=== PATIENT | male | born 1965 | race Caucasian/White ===

== ENCOUNTER 2022-05-20 11:15 | Emergency (ER) | payer OTHER ==
[~2022-05-20] VITALS: Ht 182.9 cm; Wt 74.8 kg
[2022-05-20] MEDS ORDERED: CEFAZOLIN SODIUM 2 GM VIAL IVP STA (13:29)
[2022-05-20] MEDS ORDERED: TETANUS/DIPHTHERIA TOXOID [ADULT] 0.5 ML VIAL IM ONE (13:30)
[2022-05-20 13:58] LABS: BASOPHILS % (AUTO) 0.2 % (0.0-5.0); EOSINOPHILS % (AUTO) 0.3 % (0.0-8.0); HEMATOCRIT 38.5 % (42-54); LYMPHOCYTES % (AUTO) 12.7 % (21.0-51.0); MEAN CORPUSCULAR VOLUME 94.1 fL (79-99); MONOCYTES % (AUTO) 10.4 % (3.0-13.0); NEUTROPHILS % (AUTO) 76.2 % (40.0-77.0); PLATELET COUNT (AUTO) 153 K/uL (130-400); RED BLOOD CELL COUNT(AUTO) 4.09 MIL/uL (4.50-6.20); RED CELL DISTRIBUTION WIDTH 13.3 % (11.0-15.5)
[2022-05-20 14:06] LABS: CREATININE 0.8 mg/dL (0.5-1.5); POTASSIUM 4.3 mmol/L (3.5-5.1)
[2022-05-20 14:11] LABS: ALBUMIN 3.8 g/dL (3.5-5.0); TOTAL PROTEIN, SERUM 7.3 g/dL (6.0-8.3)
[2022-05-20] MEDS ORDERED: ACETAMINOPHEN 500 MG TABLET PO PRN (15:30)
[2022-05-20] MEDS ORDERED: CEFTRIAXONE 2GM VIAL IVP SCH (15:30)
[2022-05-20] MEDS ORDERED: VANCOMYCIN PROTOCOL PER PHARMACY IV SCH (15:30)
[2022-05-20] MEDS ORDERED: 0.9%NACL 1000ML 1,000 ML IV SCH (15:30)
[2022-05-20] MEDS ORDERED: KETOROLAC 15MG/ML VIAL (15MG/ML) IV PRN (15:30)
[2022-05-20] MEDS ORDERED: HYDROMORPHONE 0.5 MG SYG (0.5MG/0.5ML) IVP PRN (15:30)
[2022-05-20] MEDS ORDERED: ONDANSETRON 4MG INJ IVP PRN (15:30)
[2022-05-20] MEDS ORDERED: PANTOPRAZOLE 40 MG/VIAL IVP SCH (15:30)
[2022-05-20 15:57] LABS: INR 0.93 (0.85-1.15); PROTHROMBIN TIME 9.9 SEC (9.6-11.6)
[2022-05-20] MEDS ORDERED: CHLORDIAZEPOXIDE HCL 25 MG CAP PO PRN (16:00)
[2022-05-20] MEDS ORDERED: VANCOMYCIN 1.5 GM/250 ML BAG 250 ML IV SCH (16:00)
[2022-05-20] MEDS ORDERED: THIAMINE HCL 100 MG/ML 2ML VIAL IVP SCH (16:00)
[2022-05-20] MEDS ORDERED: LORAZEPAM 2 MG/ML 1 ML VIAL IVP PRN (16:00)
[2022-05-20] MEDS ORDERED: PHARMACY COMMUNICATION MISC PRN (16:00)
[2022-05-20 16:28] LABS: HEMOGLOBIN A1C 5.1 % (4.0-6.0)
[2022-05-20] MEDS ORDERED: ACETAMINOPHEN 500 MG TABLET ONE (18:43)
[2022-05-20 19:08] VITALS: BP 139/78
[2022-05-20] MEDS ORDERED: METRONIDAZOLE 500MG/100ML BAG 100 ML IVPB SCH (22:00)
[2022-05-21] MEDS ORDERED: 0.9% NACL 250ML 250 ML IV SCH (06:00)
[2022-05-21] MEDS ORDERED: VANCOMYCIN 750MG VIAL IVPB SCH (06:00)
== END 2022-05-20 19:17 | disposition short-term general hospital (02) ==
LOC: EDH 11:15 → UNDOADMIN 11:16 → EDHIP 11:16 → EDH 19:17
DX: S61.232A Puncture wound without foreign body of right middle finger without damage to nail, initial encounter (principal); L03.011 Cellulitis of right finger; Z20.822 Contact with and (suspected) exposure to COVID-19; W34.09XA Accidental discharge from other specified firearms, initial encounter; Y93.89 Activity, other specified; Y92.89 Other specified places as the place of occurrence of the external cause; Y99.8 Other external cause status
CPT/HCPCS: 99285; 96365; 96375; 87635; 96366; 96361; 83036; 84443; 80053; 85025; 85610; 85730; 85651; 86850; 86900; 86901; 87040 ×2; 86140; 36415; 90714; 73130; 90471; 93005; 84145; C9803; J0696; J3370; J0690